=== PATIENT | male | born 1985 | race Hispanic/Latino ===

== ENCOUNTER 2017-01-27 22:53 | Emergency (ER) | payer MEDICAID ==
[2017-01-27 23:20] VITALS: BMI 26.6
[2017-01-27] MEDS ORDERED: Amoxicillin-Clav 875-125 mg Tab PO STA (23:26)
[2017-01-27] MEDS ORDERED: Oxycodone/Acetaminophen 5/325 mg Tab PO STA (23:26)
[2017-01-27 23:29] VITALS: BP 160/78; PULSE 100; RESP 16; TEMP 98.7
--- NOTE | 2017-01-27 23:31 | ED PDOC ---
Arrival/HPI - General Chief Complaint: Dental Pain Time Seen by Provider: 01/27/17 23:25 Historian: Patient - History of Present Illness Narrative History of Present Illness (Text): 01/27/17 23:27 31 y/o male pmh including htn/dm, nkda, c/o lt. lower molar pain x 3 days with no fall or trauma. Aching pain, unable to see the dentist due to the schedule problem, no facial swelling, no pain medication taken at home, no dizziness, no rash, no numbness or tingling, no fever or chills, no other medical or psychological complaints. Past Medical History - Provider Review Nursing Documentation Reviewed: Yes - Infectious Disease Hx of Infectious Diseases: None - Tetanus Immunization Tetanus Immunization: Unknown, Up to Date - Cardiac Hx Cardiac Disorders: Yes - Pulmonary Hx Respiratory Disorders: No - Neurological Hx Neurological Disorder: Yes Hx Transient Ischemic Attacks (TIA): Yes - HEENT Hx HEENT Disorder: No - Renal Hx Renal Disorder: Yes Hx Renal Failure: Yes - Endocrine/Metabolic Hx Endocrine Disorders: Yes Hx Diabetes Mellitus Type 1: Yes (pt wears insulin pump) Hx Diabetes Mellitus Type 2: No Other/Comment: diabetic neuropathy - Hematological/Oncological Hx Blood Disorders: No - Integumentary Hx Dermatological Disorder: No - Musculoskeletal/Rheumatological Hx Musculoskeletal Disorders: No - Genitourinary/Gynecological Hx Genitourinary Disorders: No Hx Reproductive Disorders: No - Psychiatric Hx Depression: No Hx Substance Use: Yes (marijuana) - Past Surgical History Past Surgical History: No Previous - Surgical History Hx Appendectomy: Yes - Anesthesia Hx Anesthesia: Yes Hx Anesthesia Reactions: No Hx Malignant Hyperthermia: No - Suicidal Assessment Feels Threatened In Home Enviroment: No Family/Social History - Physician Review Nursing Documentation Reviewed: Yes Family/Social History: Unknown Family HX Smoking Status: Heavy Smoker > 10 Cigarettes Daily Hx Alcohol Use: Yes Hx Substance Use: Yes (marijuana) Hx Substance Use Treatment: No Allergies/Home Meds Allergies/Adverse Reactions: Allergies No Known Allergies Allergy (Verified 01/03/16 00:50) Home Medications: Home Meds Medication Instructions Recorded Confirmed Insulin Lispro, Recombinant 1 units SC TID 04/28/13 01/27/17 [Humalog] Lisinopril 5 mg PO DAILY 04/28/13 01/27/17 Insulin Glargine, Recombinan 30 unit SC DAILY 12/01/13 01/27/17 [Lanhirenus] Review of Systems - Review of Systems Constitutional: absent: Fatigue, Fevers Eyes: absent: Vision Changes ENT: Other (dental pain). absent: Hearing Changes, Rhinorrhea Respiratory: absent: SOB, Cough, Sputum, Wheezing Cardiovascular: absent: Chest Pain Gastrointestinal: absent: Abdominal Pain, Nausea, Vomiting Musculoskeletal: absent: Arthralgias, Back Pain, Neck Pain, Joint Swelling, Myalgias Skin: absent: Rash, Pruritis, Skin Lesions, Laceration, Abscess, Ulcer, Cellulitis Neurological: absent: Headache, Dizziness, Focal Weakness, Gait Changes, Speech Changes, Facial Droop, Disequilibrium, Seizure Physical Exam Vital Signs Temp Pulse Resp BP Pulse Ox 01/27/17 23:26 98.7 F 100 H 16 160/78 H 99 Pain Distress: Severe Mental Status: Positive for: Alert and Oriented X 3 - Systems Exam Head: Present: Atraumatic, Normocephalic, Other (no facial swelling. ) Pupils: Present: PERRL Extroacular Muscles: Present: EOMI Conjunctiva: Present: Normal Mouth: Present: Moist Mucous Membranes, Normal Lips, Normal Tounge, Other ( visible lt. lower molar cracked with brown discoloration but there is no gingivitis or gingival abscess. ). No: Drooling, Trismus Neck: Present: Normal Range of Motion Respiratory/Chest: Present: Clear to Auscultation, Good Air Exchange. No: Respiratory Distress, Accessory Muscle Use Cardiovascular: Present: Regular Rate and Rhythm, Normal S1, S2. No: Murmurs Abdomen: Present: Normal Bowel Sounds. No: Tenderness, Distention, Peritoneal Signs Neurological: Present: GCS=15, Speech Normal, Motor Func Grossly Intact, Gait Normal, Memory Normal Skin: Present: Warm, Dry, Normal Color. No: Rashes Lymphatic: No: Cervical Adenopathy Psychiatric: Present: Alert, Oriented x 3, Normal Insight, Normal Concentration Medical Decision Making ED Course and Treatment: 01/27/17 23:31 -toradol IM/percocet/augmentin/lidocaine viscous rinse and spit. 01/27/17 23:48 -Pt. feels better already with the viscous lidocaine, request to be discharge home, will discharge home. -Discharge home with augmentin, ibuprofen, salt water gargling, soft food diet, stay hydrated, follow up with your own pmd and dentist within 2 days, return to the ER for any new or worsening signs or symptoms. - Medication Orders Current Medication Orders: Discontinued Medications Amoxicillin/Clavulanate Potassium (Augmentin 875 Mg-125 Mg Tab) 1 tab PO STAT STA PRN Reason: Protocol Stop: 01/27/17 23:27 Last Admin: 01/27/17 23:45 Dose: 1 TAB Ketorolac Tromethamine (Toradol) 60 mg IM STAT STA Stop: 01/27/17 23:27 Last Admin: 01/27/17 23:46 Dose: 60 MG IM Administration Charges Document 01/27/17 23:46 [email or web address] (Rec: 01/27/17 23:46 [email or web address] [id number]) Injection Site MAR Injection Site Right Gluteus Siddharth Charges for Administration # of IM Administrations 1 Lidocaine HCl (Lidocaine 2% Viscous) 15 ml PO STAT STA Stop: 01/27/17 23:27 Last Admin: 01/27/17 23:45 Dose: 15 ML Oxycodone/Acetaminophen (Percocet 5/325 Mg Tab) 1 tab PO STAT STA Stop: 01/27/17 23:27 Last Admin: 01/27/17 23:46 Dose: 1 TAB - PA / DOBBY LOOM CHAIN PEGGER / Resident Statement MD/DO has reviewed & agrees with the documentation as recorded. Disposition/Present on Arrival - Present on Arrival Any Indicators Present on Arrival: No History of DVT/PE: No History of Uncontrolled Diabetes: Yes Urinary Catheter: No History of Decub. Ulcer: No History Surgical Site Infection Following: None - Disposition Have Diagnosis and Disposition been Completed?: Yes Diagnosis: Dental caries, Toothache Disposition Time: 23:32 Patient Plan: Discharge Condition: GOOD Additional Instructions: Discharge home with augmentin, ibuprofen, salt water gargling, soft food diet, stay hydrated, follow up with your own pmd and dentist within 2 days, return to the ER for any new or worsening signs or symptoms. Prescriptions: Amoxicillin/Clavulanate [Augmentin 875 MG-125 MG] 1 tab PO BID #20 tab Ibuprofen [Motrin Tab] 800 mg PO TID PRN #21 tab PRN Reason: Other Referrals: Raul Lira DMD [Staff Provider] - Follow up with primary [facility] [place] [Outside] - Follow up with primary Forms: WORK NOTE
[2017-01-28 00:11] VITALS: O2SAT 98
== END 2017-01-28 00:13 | disposition home or self-care (01) ==
LOC: ED 22:53
DX: K02.9 Dental caries, unspecified (principal); K08.89 Other specified disorders of teeth and supporting structures
CPT/HCPCS: 96372; 99282; J1885

== ENCOUNTER 2017-02-05 20:31 | Emergency (ER) | payer MEDICAID ==
[2017-02-05 20:39] VITALS: BMI 27.3
[2017-02-05] MEDS ORDERED: Sodium Chloride 0.9% 500 ML IV ONE (20:44)
[2017-02-05] MEDS ORDERED: Dextrose 50% SYRINGE Inj (50 ml) IVP STA ×2 (20:44)
[2017-02-05 20:48] LABS: ADD MANUAL DIFF? NO
--- NOTE | 2017-02-05 20:51 | ED PDOC ---
Arrival/HPI - General Chief Complaint: High Blood Sugar Time Seen by Provider: 02/05/17 20:43 Historian: Family (Sister, brother and EMS), EMS EM Caveat: Altered Mental Status - History of Present Illness Time/Duration: Prior to Arrival Symptom Onset: Sudden Symptom Course: Unchanged Severity Level: Severe Associated Symptoms (Text): 02/05/17 20:48 Patient is a diabetic on insulin only. Unknown if he ate today. Patient has his insulin pump running. Apparently, the patient became unresponsive and his blood sugar was less than 20. Sister reports that he had a seizure. The patient's insulin pump was removed by the nurse prior to my arrival. Patient's blood sugar in the department is less than 20. He was given 2 Amps of D50. He is hypothermic on rectal temperature. He did have improvement with D50. Past Medical History - Infectious Disease Hx of Infectious Diseases: None - Tetanus Immunization Tetanus Immunization: Unknown, Up to Date - Cardiac Hx Cardiac Disorders: Yes - Pulmonary Hx Respiratory Disorders: No - Neurological Hx Neurological Disorder: Yes Hx Transient Ischemic Attacks (TIA): Yes - HEENT Hx HEENT Disorder: No - Renal Hx Renal Disorder: Yes Hx Renal Failure: Yes - Endocrine/Metabolic Hx Endocrine Disorders: Yes Hx Diabetes Mellitus Type 1: Yes (pt wears insulin pump) Hx Diabetes Mellitus Type 2: No Other/Comment: diabetic neuropathy - Hematological/Oncological Hx Blood Disorders: No - Integumentary Hx Dermatological Disorder: No - Musculoskeletal/Rheumatological Hx Musculoskeletal Disorders: No - Genitourinary/Gynecological Hx Genitourinary Disorders: No Hx Reproductive Disorders: No - Psychiatric Hx Depression: No Hx Substance Use: Yes (marijuana) - Past Surgical History Past Surgical History: No Previous - Surgical History Hx Appendectomy: Yes - Anesthesia Hx Anesthesia: Yes Hx Anesthesia Reactions: No Hx Malignant Hyperthermia: No - Suicidal Assessment Feels Threatened In Home Enviroment: No Family/Social History - Physician Review Nursing Documentation Reviewed: Yes Family/Social History: Unknown Family HX Smoking Status: Heavy Smoker > 10 Cigarettes Daily Hx Alcohol Use: Yes Hx Substance Use: Yes (marijuana) Hx Substance Use Treatment: No Allergies/Home Meds Allergies/Adverse Reactions: Allergies No Known Allergies Allergy (Verified 01/03/16 00:50) Home Medications: Home Meds Medication Instructions Recorded Confirmed Insulin Lispro, Recombinant 1 units SC TID 04/28/13 01/27/17 [Humalog] Lisinopril 5 mg PO DAILY 04/28/13 01/27/17 Insulin Glargine, Recombinan 30 unit SC DAILY 12/01/13 01/27/17 [Lantus] Review of Systems - Review of Systems Systems not reviewed;Unavailable: Altered Mental Status Physical Exam Vital Signs Temp Pulse Resp BP Pulse Ox 02/05/17 22:22 98.1 F 77 17 134/70 100 02/05/17 20:33 91.7 F L 84 20 142/77 99 Temperature: Hypothermic Blood Pressure: Normal Pulse: Regular Respiratory Rate: Normal Appearance: Positive for: Well-Appearing, Non-Toxic, Comfortable Pain Distress: None Mental Status: Positive for: Confused, Agitated - Systems Exam Head: Present: Atraumatic, Normocephalic Pupils: Present: PERRL Extroacular Muscles: Present: EOMI Conjunctiva: Present: Normal Mouth: Present: Moist Mucous Membranes Pharnyx: No: ERYTHEMA, EXUDATE, TONSILS ENLARGED Neck: Present: Normal Range of Motion Respiratory/Chest: Present: Clear to Auscultation, Good Air Exchange, Decreased Breath Sounds. No: Respiratory Distress, Accessory Muscle Use Cardiovascular: Present: Regular Rate and Rhythm, Normal S1, S2. No: Murmurs Abdomen: Present: Normal Bowel Sounds. No: Tenderness, Distention, Peritoneal Signs, Rebound, Guarding Upper Extremity: Present: Normal Inspection. No: Cyanosis, Edema Lower Extremity: Present: Normal Inspection. No: Edema Neurological: Present: CN II-XII Intact, Motor Func Grossly Intact Skin: Present: Dry, Normal Color. No: Warm (cool, ), Rashes Medical Decision Making ED Course and Treatment: 02/05/17 20:54 EKG shows normal sinus rhythm rate approximately 80 with poor R waves and no acute ST or T-wave changes 02/05/17 21:24 Patient's blood sugar is now 185 and he has eaten a turkey sandwich. He is awake alert and uncooperative. He wants to go home 02/05/17 22:02 Advised admission for hypothermia with leukocytosis and hypoglycemia with seizures secondary to hypoglycemia, but patient refused and wants to go home. he states that he feels fine and will restart his insulin pump and follow-up with his sponge packer. patient confirms that he does not take any oral hypoglycemics. blood sugar is 341. - Lab Interpretations Lab Results: 02/05/17 20:40 02/05/17 20:40 Lab Results 02/05/17 20:40: WBC 18.1 H D, RBC 5.33, Hgb 17.6, Hct 48.9, MCV 91.7, MCH 33.0, MCHC 36.0, RDW 12.3, Plt Count 253, MPV 10.5, Gran % 66.6, Lymph % (Auto) 22.7, [place] % (Auto) 8.6 H, Eos % (Auto) 1.9, Baso % (Auto) 0.2, Gran # 12.07 H, Lymph # 4.1 H, [place] # 1.6 H, Eos # 0.3, Baso # 0.03, Sodium 144, Potassium 3.4 L, Chloride 103, Carbon Dioxide 24, Anion Gap 20, BUN 17, Creatinine 1.0, Est GFR ( Amer) > 60, Est GFR (Non-Af Amer) > 60, Random Glucose 23 L* D, Calcium 9.9, Total Bilirubin 0.8, AST 20, ALT 26, Alkaline Phosphatase 89, Lactate Dehydrogenase 527, Total Creatine Kinase 92, Troponin I < 0.01, Total Protein 9.1 H, Albumin 4.6, Globulin 4.5, Albumin/Globulin Ratio 1.0 L - RAD Interpretation Radiology Orders: 02/05/17 20:46 CHEST PORTABLE [RAD] Stat chest 1 view shows borderline cardiomegaly with increased markings and no infiltrate or effusion Tape Deck Installer: ED Physician - Medication Orders Current Medication Orders: Discontinued Medications Dextrose (Dextrose 50% Inj) 50 ml IVP STAT STA Stop: 02/05/17 20:45 Last Admin: 02/05/17 20:54 Dose: 50 ML IVP Administration Document 02/05/17 20:54 JOL (Rec: 02/05/17 20:54 [place] [facility] [id number][place] Charges for Administration # of IVP Administrations 1 Dextrose (Dextrose 50% Inj) 50 ml IVP STAT STA Stop: 02/05/17 20:45 Last Admin: 02/05/17 20:54 Dose: 50 ML IVP Administration Document 02/05/17 20:54 JOL (Rec: 02/05/17 20:54 [place] [facility] [id number][place] Charges for Administration # of IVP Administrations 1 Sodium Chloride (Sodium Chloride 0.9%) 500 mls @ 500 mls/hr IV ONCE ONE Stop: 02/05/17 21:43 Last Admin: 02/05/17 21:40 Dose: 500 MLS/HR eMAR Start Stop Document 02/05/17 21:40 JOL (Rec: 02/05/17 21:40 JOL [id number]) Intravenous Solution Start Date 02/05/17 Start Time 21:40 End Date 02/05/17 End time 22:40 Total Infusion Time 60 Disposition/Present on Arrival - Present on Arrival Any Indicators Present on Arrival: No History of DVT/PE: No History of Uncontrolled Diabetes: Yes Urinary Catheter: No History of Decub. Ulcer: No History Surgical Site Infection Following: None - Disposition Have Diagnosis and Disposition been Completed?: Yes Diagnosis: Hypoglycemia due to insulin, Seizure, Hypothermia Disposition: HOME/ ROUTINE Disposition Time: 22:05 Patient Plan: Discharge Patient Problems: Current Active Problems Problem Status Diagnosed Hypoglycemia due to insulin Acute Hypothermia Acute Seizure Acute Condition: IMPROVED Discharge Instructions (ExitCare): Diabetic Hypoglycemia (ED), Acute Hypothermia (ED) Additional Instructions: Must eat and take insulin as prescribed. Follow up with PMD and sponge packer. Follow up in ER as needed. Referrals: Vivek Sumner MD [Primary Care Provider] - Follow up with primary
[2017-02-05 21:02] LABS: BASO # 0.03 K/mm3 (0.0-2.0); BASO % 0.2 % (0.0-3.0); EOS # 0.3 (0.0-0.7); EOS % 1.9 % (1.5-5.0); GRAN # 12.07 (1.4-6.5); GRAN % 66.6 % (50.0-68.0); HEMATOCRIT 48.9 % (42.0-52.0); LYMPH # 4.1 (1.2-3.4); LYMPH % 22.7 % (22.0-35.0); MEAN CELL VOLUME 91.7 fL (80.0-105.0); MEAN PLATELET VOLUME 10.5 fl (7.0-11.0); MONO # 1.6 (0.1-0.6); MONO % 8.6 % (1.0-6.0); PLATELET COUNT 253 10^3/uL (120.0-450.0); RED CELL DISTRIBUTION WIDTH 12.3 % (11.5-14.5); WHITE BLOOD COUNT 18.1 10^3/ul (4.5-11.0)
[2017-02-05 21:07] LABS: ALKALINE PHOSPHATASE 89 U/L (38-133); ALT/SGPT 26 U/L (7-56); AST/SGOT 20 U/L (15-59); BILIRUBIN,TOTAL 0.8 mg/dL (0.2-1.3); BLOOD UREA NITROGEN 17 mg/dL (7-21); CALCIUM 9.9 mg/dL (8.4-10.5); CARBON DIOXIDE 24 mmol/L (21-33); CHLORIDE 103 mmol/L (98-107); GFR AFRICAN-AMERICAN > 60; POTASSIUM 3.4 mmol/L (3.6-5.0); SODIUM 144 mmol/L (132-148); TOTAL PROTEIN 9.1 g/dL (5.8-8.3)
[2017-02-05 21:12] LABS: GLUCOSE,RANDOM 23 mg/dL (70-110)
[2017-02-05 21:20] LABS: TROPONIN I < 0.01 ng/mL
[2017-02-05 22:23] VITALS: BP 134/70; PULSE 77; RESP 17; TEMP 98.1; O2SAT 100
--- NOTE | 2017-02-06 08:01 | RAD ---
HISTORY: DM COMPARISON: 01/03/2016 FINDINGS: LUNGS: No active pulmonary disease. PLEURA: No significant pleural effusion identified, no pneumothorax apparent. CARDIOVASCULAR: Normal. OSSEOUS STRUCTURES: No significant abnormalities. VISUALIZED UPPER ABDOMEN: Normal. OTHER FINDINGS: None. IMPRESSION: No active disease.
--- NOTE | 2017-02-06 11:19 | CARD ---
APPROVED REPORT EKG Measurement Heart [id number] <Conclusion> Normal sinus rhythm Normal ECG
== END 2017-02-05 22:28 | disposition home or self-care (01) ==
LOC: ED 20:31
DX: E10.649 Type 1 diabetes mellitus with hypoglycemia without coma (principal); Z96.41 Presence of insulin pump (external) (internal); R56.9 Unspecified convulsions; T68.XXXA Hypothermia, initial encounter
CPT/HCPCS: 71010; 80053; 82550; 82948; 83615; 84484; 85025; 93005; 96361; 96374; 99285; J7040

== ENCOUNTER 2017-04-20 10:03 | Emergency (ER) | payer MEDICAID ==
[2017-04-20 10:03] VITALS: BMI 27.3
[2017-04-20 10:19] VITALS: RESP 18; TEMP 98.6
[2017-04-20] MEDS ORDERED: diaZEpam 10 mg/2 ml Inj IVP ONE (10:49)
--- NOTE | 2017-04-20 11:26 | ED PDOC ---
Arrival/HPI - General Chief Complaint: Back Pain Time Seen by Provider: 04/20/17 10:32 Historian: Patient - History of Present Illness Narrative History of Present Illness (Text): 04/20/17 11:18 32yo male present with 5days history of right sided "pressure" like back pain that radiates posteriorly to his thighs. States pain was relieved that first 3days with topical OTC analgesic, but then it stopped working. He notes that pain is worse with any movement. Did not take any oral analgesic. denies trauma , focal weakness, paresthesia, urinary/fecal incontinence, abdominal pain, urinary symptoms, hematuria, saddle anesthesia. Past Medical History - Provider Review Nursing Documentation Reviewed: Yes - Infectious Disease Hx of Infectious Diseases: None - Tetanus Immunization Tetanus Immunization: Unknown, Up to Date - Cardiac Hx Cardiac Disorders: Yes - Pulmonary Hx Respiratory Disorders: No - Neurological Hx Neurological Disorder: Yes Hx Transient Ischemic Attacks (TIA): Yes - HEENT Hx HEENT Disorder: No - Renal Hx Renal Disorder: Yes Hx Renal Failure: Yes - Endocrine/Metabolic Hx Endocrine Disorders: Yes Hx Diabetes Mellitus Type 1: Yes (pt wears insulin pump) Hx Diabetes Mellitus Type 2: No Other/Comment: diabetic neuropathy - Hematological/Oncological Hx Blood Disorders: No - Integumentary Hx Dermatological Disorder: No - Musculoskeletal/Rheumatological Hx Musculoskeletal Disorders: No - Genitourinary/Gynecological Hx Genitourinary Disorders: No Hx Reproductive Disorders: No - Psychiatric Hx Depression: No Hx Substance Use: Yes (marijuana) - Past Surgical History Past Surgical History: No Previous - Surgical History Hx Appendectomy: Yes - Anesthesia Hx Anesthesia: Yes Hx Anesthesia Reactions: No Hx Malignant Hyperthermia: No - Suicidal Assessment Feels Threatened In Home Enviroment: No Family/Social History - Physician Review Nursing Documentation Reviewed: Yes Family/Social History: Unknown Family HX Smoking Status: Heavy Smoker > 10 Cigarettes Daily Hx Alcohol Use: No Hx Substance Use: Yes (marijuana) Hx Substance Use Treatment: No Allergies/Home Meds Allergies/Adverse Reactions: Allergies No Known Allergies Allergy (Verified 04/20/17 10:14) Home Medications: Home Meds Medication Instructions Recorded Confirmed Insulin Pump Controller [Snap 1 each MC 04/20/17 Insulin Pump Controller] Review of Systems - Physician Review All systems were reviewed & negative as marked: Yes - Review of Systems Constitutional: Normal Eyes: Normal ENT: Normal Respiratory: Normal Cardiovascular: Normal Gastrointestinal: Normal Genitourinary Male: Normal Musculoskeletal: Back Pain Skin: Normal Neurological: Normal Endocrine: Normal Hemo/Lymphatic: Normal Psychiatric: Normal Physical Exam Vital Signs Reviewed: Yes Vital Signs Temp Pulse Resp BP Pulse Ox 04/20/17 12:40 91 H 18 163/84 H 99 04/20/17 10:17 98.6 F 104 H 18 168/98 H 98 Temperature: Afebrile Blood Pressure: Normal Pulse: Tachycardic Respiratory Rate: Normal Appearance: Positive for: Well-Appearing, Non-Toxic, Comfortable Pain Distress: Moderate Mental Status: Positive for: Alert and Oriented X 3 Finger Stick Blood Glucose: 151 - Systems Exam Head: Present: Atraumatic, Normocephalic Pupils: Present: PERRL Extroacular Muscles: Present: EOMI Conjunctiva: Present: Normal Mouth: Present: Moist Mucous Membranes Neck: Present: Normal Range of Motion Respiratory/Chest: Present: Clear to Auscultation, Good Air Exchange. No: Respiratory Distress, Accessory Muscle Use Cardiovascular: Present: Regular Rate and Rhythm, Normal S1, S2. No: Murmurs Abdomen: Present: Normal Bowel Sounds. No: Tenderness, Distention, Peritoneal Signs Back: Present: Paraspinal Tenderness (Right sided paralumbar tenderness), Pain with Leg Raise (Right leg). No: Midline Tenderness Upper Extremity: Present: Normal Inspection. No: Cyanosis, Edema Lower Extremity: Present: Normal Inspection. No: Edema Neurological: Present: GCS=15, CN II-XII Intact, Speech Normal Skin: Present: Warm, Dry, Normal Color. No: Rashes Psychiatric: Present: Alert, Oriented x 3, Normal Insight, Normal Concentration Medical Decision Making ED Course and Treatment: 04/20/17 13:33 Ls xray - Negative Pt's pain improved in ED with medication. He was ambulatory and had no focal neurological deficit He was DC home with Tramadol, Ibuprofen and Flexeril. Advised to apply warm compress to area, rest. Referred to his PMD. TRT ED for any new or worsening symptoms - RAD Interpretation Radiology Orders: 04/20/17 10:49 LS SPINE WITH OBL > 18 YRS OLD [RAD] Stat - Medication Orders Current Medication Orders: Discontinued Medications Diazepam (Valium) 5 mg IVP ONCE ONE PRN Reason: Protocol Stop: 04/20/17 10:50 Last Admin: 04/20/17 11:00 Dose: 5 mg Ketorolac Tromethamine (Toradol) 30 mg IVP STAT STA Stop: 04/20/17 10:49 Last Admin: 04/20/17 11:00 Dose: 30 mg Disposition/Present on Arrival - Present on Arrival Any Indicators Present on Arrival: No History of DVT/PE: No History of Uncontrolled Diabetes: Yes Urinary Catheter: No History of Decub. Ulcer: No History Surgical Site Infection Following: None - Disposition Have Diagnosis and Disposition been Completed?: Yes Diagnosis: Back pain Disposition: HOME/ ROUTINE Disposition Time: 12:20 Patient Plan: Discharge Condition: IMPROVED Discharge Instructions (ExitCare): Acute Low Back Pain (ED) Additional Instructions: Follow up with your Doctor/Orthopedist Rest and apply warm compress to area Return to ED for any new symptoms Prescriptions: Cyclobenzaprine [Cyclobenzaprine HCl] 10 mg PO TID #12 tab Ibuprofen [Motrin Tab] 600 mg PO Q6 #20 tab traMADol [Ultram] 50 mg PO TID #8 tab Referrals: PCP,NO [Primary Care Provider] - Follow up with primary
--- NOTE | 2017-04-20 12:11 | RAD ---
PROCEDURE: Radiographs of the Lumbar Spine. HISTORY: back pain COMPARISON: No prior. FINDINGS: BONES: Normal alignment. No listhesis. No fracture. DISC SPACES: Unremarkable. OTHER FINDINGS: None. IMPRESSION: Unremarkable radiographs of the lumbar spine.
[2017-04-20 12:49] VITALS: BP 163/84; PULSE 91; O2SAT 99
== END 2017-04-20 12:40 | disposition home or self-care (01) ==
LOC: ED 10:03
DX: M54.5 Low back pain (principal)
CPT/HCPCS: 72110; 96374; 96375; 99282; J1885; J3360

== ENCOUNTER 2018-12-30 17:33 | Emergency (ER) | payer MEDICAID ==
[2018-12-30 17:34] VITALS: BMI 27.3
[2018-12-30 18:02] VITALS: BP 127/89; PULSE 112; RESP 18; TEMP 97.9; O2SAT 97
[2018-12-30] MEDS ORDERED: Dextrose 50% SYRINGE Inj (50 ml) IVP STA (18:36)
--- NOTE | 2018-12-30 18:43 | RAD ---
Date of service: 12/30/2018 HISTORY: Chest pain. COMPARISON: 02/05/2017 FINDINGS: LUNGS: No active pulmonary disease. PLEURA: No significant pleural effusion identified, no pneumothorax apparent. CARDIOVASCULAR: No atherosclerotic calcification present No radiographic findings to suggest acute or significant cardiovascular disease. OSSEOUS STRUCTURES: No significant abnormalities. VISUALIZED UPPER ABDOMEN: Normal. OTHER FINDINGS: None. IMPRESSION: No active disease. No significant interval change compared to the prior examination(s).
--- NOTE | 2018-12-30 18:45 | ED PDOC ---
Arrival/HPI - General Chief Complaint: Headache Time Seen by Provider: 12/30/18 17:35 Historian: Patient - History of Present Illness Narrative History of Present Illness (Text): 12/30/18 18:39 33 year old male, with past medical history of diabetes on insulin since past 5 years, presents to the ED for evaluation of headache, nausea and blurry vision without any loss of visual field since this morning. Patient states his blood sugar has been fluctuating all day, with a blood sugar of 350-460s in the morning, did not take any insulin through his pump all day and now is low. Patient additionally states having chest pain earlier and anxiousness since this morning but denies any other somatic complaints. Reports no chest pain now. Patient denies any fevers, chills, dizziness, shortness of breath, dyspnea on exertion, cough, abdominal pain, vomiting, diarrhea, back pain, neck pain, or any other complaints. Patient denies any head injury or trauma, or any prior headache. PMD: Dr. Haney Time/Duration: 24 hours Symptom Onset: Gradual Symptom Course: Unchanged Activities at Onset: Light Context: Home Past Medical History - Provider Review Nursing Documentation Reviewed: Yes - Infectious Disease Hx of Infectious Diseases: None - Tetanus Immunization Tetanus Immunization: Up to Date, Unknown - Cardiac Hx Cardiac Disorders: Yes - Pulmonary Hx Respiratory Disorders: No - Neurological Hx Neurological Disorder: Yes Hx Transient Ischemic Attacks (TIA): Yes - HEENT Hx HEENT Disorder: No - Renal Hx Renal Disorder: Yes Hx Renal Failure: Yes - Endocrine/Metabolic Hx Endocrine Disorders: Yes Hx Diabetes Mellitus Type 1: Yes (pt wears insulin pump) Hx Diabetes Mellitus Type 2: No Other/Comment: diabetic neuropathy - Hematological/Oncological Hx Blood Disorders: No - Integumentary Hx Dermatological Disorder: No - Musculoskeletal/Rheumatological Hx Musculoskeletal Disorders: No - Genitourinary/Gynecological Hx Genitourinary Disorders: No Hx Reproductive Disorders: No - Psychiatric Hx Depression: No Hx Substance Use: Yes (marijuana) - Past Surgical History Past Surgical History: No Previous - Surgical History Hx Appendectomy: Yes - Anesthesia Hx Anesthesia: Yes Hx Anesthesia Reactions: No Hx Malignant Hyperthermia: No - Suicidal Assessment Feels Threatened In Home Enviroment: No Family/Social History - Physician Review Nursing Documentation Reviewed: Yes Family/Social History: No Known Family HX Smoking Status: Heavy Smoker > 10 Cigarettes Daily Hx Alcohol Use: No Hx Substance Use: Yes (marijuana) Hx Substance Use Treatment: No Allergies/Home Meds Allergies/Adverse Reactions: Allergies No Known Allergies Allergy (Verified 09/27/18 08:18) Home Medications: Home Meds Medication Instructions Recorded Confirmed Insulin Pump Controller [Snap 1 each MC 04/20/17 Insulin Pump Controller] Review of Systems - Physician Review All systems were reviewed & negative as marked: Yes - Review of Systems Constitutional: absent: Fevers Eyes: Other (Blurry vision) ENT: absent: Hearing Changes Respiratory: absent: SOB, Cough Cardiovascular: Chest Pain Gastrointestinal: Nausea. absent: Abdominal Pain, Diarrhea, Vomiting Genitourinary Male: absent: Dysuria, Frequency, Hematuria, Urinary Output Sheldon es Musculoskeletal: absent: Back Pain, Neck Pain Skin: absent: Rash Neurological: Headache. absent: Dizziness, Focal Weakness, Speech Changes Endocrine: absent: Diaphoresis, Polyuria Psychiatric: absent: Anxiety Physical Exam Vital Signs Reviewed: Yes Vital Signs Temp Pulse Resp BP Pulse Ox 12/30/18 17:59 97.9 F 112 H 18 127/89 97 Temperature: Afebrile Blood Pressure: Normal Pulse: Tachycardic Respiratory Rate: Normal Appearance: Positive for: Well-Appearing, Other (Irritable) Pain Distress: None Mental Status: Positive for: Alert and Oriented X 3 Finger Stick Blood Glucose: 66 - Systems Exam Head: Present: Atraumatic, Normocephalic Pupils: Present: PERRL Extroacular Muscles: Present: EOMI Conjunctiva: Present: Normal Mouth: Present: Moist Mucous Membranes Neck: Present: Normal Range of Motion. No: Meningeal Signs, Lymphadenopathy Respiratory/Chest: Present: Clear to Auscultation, Good Air Exchange. No: Respiratory Distress, Accessory Muscle Use Cardiovascular: Present: Regular Rate and Rhythm, Normal S1, S2. No: Murmurs Abdomen: No: Tenderness, Distention, Peritoneal Signs, Rebound, Guarding Upper Extremity: Present: Normal Inspection. No: Cyanosis, Edema Lower Extremity: Present: Normal Inspection. No: Edema Neurological: Present: GCS=15, CN II-XII Intact, Speech Normal, Motor Func Grossly Intact, Normal Sensory Function, Gait Normal Skin: Present: Warm, Dry, Normal Color. No: Rashes Psychiatric: Present: Alert, Oriented x 3, Normal Insight, Normal Concentration Medical Decision Making ED Course and Treatment: 12/30/18 18:14 Impression: 33 year old male presents to the ED for evaluation of headache, nausea, blurry vision and fluctuating blood sugar. Plan: -- CT of Head -- EKG -- Labs -- CXR -- Dextrose -- Tylenol -- Reassess and disposition Prior Visits: Notes and results from previous visits were reviewed. Progress Notes: 12/30/18 18:14 Finger stick at bedside was 67. Patient was offered juice and crackers but refused and wants his sugar re-checked. Repeat finger stick was 66. Patient advised that he needs to eat crackers and drink his juice or D50 will be given to him IV. 12/30/18 18:[address], returned and still refuses to eat crackers and juice to increase his blood sugar. D50 IV ordered. 12/30/18 19:00 EKG : ST at 108 bpm, normal axis, no acute changes. Patient refused tylenol being offered to him, he is refusing D50 IV, and drank juice instead. He is laying in bed comfortably, in no acute distress. 12/30/18 19:14 CT of head reviewed by radiologist: IMPRESSION: No acute intracranial pathology identified. CXR reviewed by radiologist, shows: IMPRESSION: No active disease. No significant interval change compared to the prior examination(s). 12/30/18 19:26 Labs being drawn now. FS 101. Encouraged to eat and drink to raise his BS. 12/30/18 19:40 On reevaluation, patient reports improvement of symptoms, denies any headache, nausea, CP dizziness. On exam, patient remains awake alert and oriented 3 in no acute distress, he is smiling. Repeat neuro exam shows no focal findings. Patient is now refusing to wait for lab results, states that he wants to leave AMA. The patient is choosing to leave against medical advice. I have personally explained to the patient that choosing to do so may result in permanent bodily harm or . I have discussed at great length that without further evaluation and monitoring there may be unforeseen circumstances and/or deterioration causing permanent bodily harm or as a result of their choice. The patient is alert, oriented, and shows the mental capacity to make clear decisions regarding the patients health care at this time. The patient continues to wish to leave against medical advice. In light of the patients decision to leave against medical advice, follow-up with his pmd was encouraged and the patient is aware of the importance to following up as instructed. The patient has been advised that they should return to the emergency room immediately if they change their mind at any time, or if their condition begins to change or worsen in any way. - RAD Interpretation Radiology Orders: 12/30/18 18:14 HEAD W/O CONTRAST [CT] Stat CHEST PORTABLE [RAD] Stat Strength And Conditioning Coach: Radiologist - Medication Orders Current Medication Orders: Discontinued Medications Acetaminophen (Tylenol 325mg Tab) 975 mg PO STAT STA Stop: 12/30/18 18:16 Dextrose (Dextrose 50% Inj) 50 ml IVP STAT STA Stop: 12/30/18 18:37 - PA / ACCOUNTING ASSOCIATE / Resident Statement MD/DO has reviewed & agrees with the documentation as recorded. - Scribe Statement The provider has reviewed the documentation as recorded by the Scribe Lonny Perez. All medical record entries made by the Scribe were at my direction and personally dictated by me. I have reviewed the chart and agree that the record accurately reflects my personal performance of the history, physical exam, medical decision making, and the department course for this patient. I have also personally directed, reviewed, and agree with the discharge instructions and disposition. Disposition/Present on Arrival - Present on Arrival Any Indicators Present on Arrival: Yes History of DVT/PE: No History of Uncontrolled Diabetes: Yes Urinary Catheter: No History of Decub. Ulcer: No History Surgical Site Infection Following: None - Disposition Have Diagnosis and Disposition been Completed?: Yes Diagnosis: Headache, Hypoglycemia Disposition: AGAINST MEDICAL ADVICE Disposition Time: 19:40 Patient Plan: Other (Patient choosing to leave AMA) Patient Problems: Current Active Problems Problem Status Onset Headache Acute Hypoglycemia Acute Condition: STABLE Discharge Instructions (ExitCare): Headache, Adult, Low Blood Sugar in People With Diabetes, Leaving Against Medical Advice Additional Instructions: Thank you for letting us take care of you today. You were treated for headache, hypoglycemia. The emergency medical care you received today was directed at your acute symptoms. Return to the Emergency Department if your symptoms worsen, do not improve, or if you have any other problems. Please contact your doctor in 2 days for re-evaluation and follow up. Bring any paperwork you were given at discharge with you along with any medications you are taking to your follow up visit. Our treatment cannot replace ongoing medical care by a primary care provider (PCP) outside of the emergency department. Thank you for allowing the [facility] team to be part of your care today. Forms: [employer] (Telugu)
--- NOTE | 2018-12-30 18:55 | CT ---
Date of service: 12/30/2018 PROCEDURE: CT HEAD WITHOUT CONTRAST. HISTORY: headache COMPARISON: Noncontrast head CT performed 12/03/13 TECHNIQUE: Axial computed tomography images were obtained through the head/brain without intravenous contrast. Radiation dose: Total exam DLP = 918.68 mGy-cm. This CT exam was performed using one or more of the following dose reduction techniques: Automated exposure control, adjustment of the mA and/or kV according to patient size, and/or use of iterative reconstruction technique. FINDINGS: HEMORRHAGE: No intracranial hemorrhage. BRAIN: No mass effect or edema. Leija-white matter differentiation appears intact. Please note that MRI with diffusion imaging is more sensitive in the detection of acute ischemic event. VENTRICLES: No hydrocephalus. CALVARIUM: Unremarkable. PARANASAL SINUSES: Unremarkable as visualized. No significant inflammatory changes. MASTOID AIR CELLS: Unremarkable as visualized. No inflammatory changes. OTHER FINDINGS: None. IMPRESSION: No acute intracranial pathology identified.
[2018-12-30 20:05] LABS: ALB/GLOB RATIO 1.1 (1.1-1.8); ALT/SGPT 10 U/L (7-56); AST/SGOT 24 U/L (17-59); BLOOD UREA NITROGEN 18 mg/dL (7-21); CALCIUM 9.4 mg/dL (8.4-10.5); GFR NON-AFRICAN AMERICAN > 60
[2018-12-30 20:12] LABS: BASO # 0.02 K/mm3 (0.0-2.0); BASO % 0.2 % (0.0-3.0); EOS # 0.1 (0.0-0.7); EOS % 0.8 % (1.5-5.0); HEMOGLOBIN 15.2 g/dL (14.0-18.0); LYMPH # 2.5 (1.2-3.4); LYMPH % 23.7 % (22.0-35.0); MEAN CELL VOLUME 91.9 fl (80.0-105.0); MEAN CORPUSCULAR HEMOGLOBIN 31.6 pg (25.0-35.0); MEAN CORPUSCULAR HGB CONC 34.4 g/dl (31.0-37.0); MEAN PLATELET VOLUME 10.5 fl (7.0-11.0); MONO # 0.7 (0.1-0.6); MONO % 6.8 % (1.0-6.0); RBC 4.81 10^6/uL (3.5-6.1); RED CELL DISTRIBUTION WIDTH 12.5 % (11.5-14.5); WHITE BLOOD COUNT 10.5 10^3/uL (4.5-11.0)
[2018-12-30 20:16] LABS: TROPONIN I < 0.01 ng/mL
--- NOTE | 2018-12-31 21:15 | CARD ---
APPROVED REPORT Date of service: 12/30/2018 EKG Measurement Heart [id number] <Conclusion> Sinus tachycardia Otherwise normal ECG
== END 2018-12-30 19:45 | disposition left against medical advice (07) ==
LOC: ED 17:33
DX: E10.649 Type 1 diabetes mellitus with hypoglycemia without coma (principal); Z79.4 Long term (current) use of insulin; R51 Headache; Z86.73 Personal history of transient ischemic attack (TIA), and cerebral infarction without residual deficits; F17.210 Nicotine dependence, cigarettes, uncomplicated